=== PATIENT | male | born 1955 | race Caucasian/White ===

== ENCOUNTER → 2017-03-26 | Outpatient (CLI) | payer SELFPAY ==
--- NOTE | 2017-03-26 13:45 | DI ---
XR HAND MIN 3VW,03/26/2017 10:31 AM: Clinical History: Right fourth metacarpal fracture. Previous Exam: None at this facility. Findings: 3 views of the right hand are obtained, and demonstrate a slightly displaced right fourth mid metacar pal fracture. The surrounding soft tissues are unremarkable. Impression: Healing right fourth mid metacarpal fracture.
== END ==
LOC: ORTHO 10:39
PROVIDERS: ATTEND Orthopaedic Surgery
DX: S62.354A Nondisplaced fracture of shaft of fourth metacarpal bone, right hand, initial encounter for closed fracture (principal); Y93.H3 Activity, building and construction
CPT/HCPCS: 73130